=== PATIENT | female | born 1985 | race African-American/Black ===

== ENCOUNTER 2018-03-02 21:17 | Emergency (ER) | payer BC, OTHER ==
[~2018-03-02] VITALS: Ht 160 cm; Wt 97.5 kg
[2018-03-02 21:45] VITALS: BP 116/72
[2018-03-02] MEDS ORDERED: ZYRTEC10 M3 ORAL (21:47)
[2018-03-02] MEDS ORDERED: AUGMENTIN 875-1 EAC1 ORAL (21:47)
[2018-03-02 22:05] VITALS: BP 116/72
--- NOTE | 2018-03-02 22:12 | Emergency Room Report ---
History of Present Illness General Chief Complaint: Flu Like Symptoms Source: Patient Present Illness HPI Patient presents with child complaining of similar complaint She was having some sore throat however began having increased right-sided ear pain Denies any obvious fever Denies any neck pain or photophobia denies any chest pain or shortness of breath Patient also developed a mild cough Denies any abdominal pain Denies any recent travel denies any rash Allergies: Coded Allergies: No Known Allergies (Unverified , 03/02/18) Patient History Past Medical History: see triage record Pertinent Family History: none Last Menstrual Period: 3 days ago Reviewed Nursing Documentation: PMH: Agreed; PSxH: Agreed Nursing Documentation-PMH Past Medical History: No Stated History Review of Systems All Other Systems: negative except mentioned in HPI Physical Exam Vital Signs Date Time Temp Pulse Resp B/P (MAP) Pulse Ox O2 Delivery O2 Flow Rate FiO2 03/02/18 21:23 99.7 101 18 116/72 95 Room Air 99.7 Sp02 EP Interpretation: reviewed, normal General Appearance: well appearing, no apparent distress Head: normocephalic, atraumatic Eyes: bilateral eye PERRL, bilateral eye EOMI ENT: hearing grossly normal, normal pharynx, other - Right-sided tympanic membrane bulging associated erythema canal is clear, Neck: full range of motion, supple, other - Right-sided submental lymphadenopathy Respiratory: lungs clear, normal breath sounds Cardiovascular #1: regular rate, rhythm Gastrointestinal: non tender, soft Musculoskeletal: normal inspection Neurologic: alert, oriented x3, responsive Skin: no rash Lymphatic: no adenopathy Medical Decision Making Diagnostic Impression: Primary Impression: otitis media Additional Impression: pharyngitis ER Course Patient presents with complaints and clinical exam consistent with right-sided otitis media mild pharyngitis Patient does not appear septic or toxic and at this time is stable for initial conservative outpatient trial Last Vital Signs Date Time Temp Pulse Resp B/P (MAP) Pulse Ox O2 Delivery O2 Flow Rate FiO2 03/02/18 21:23 99.7 101 18 116/72 95 Room Air 99.7 Status: unchanged Disposition: HOME, SELF-CARE Condition: Stable Scripts Cetirizine Hcl (ZYRTEC) 10 Mg Capsule 10 MG ORAL DAILY, #15 CAP 0 Refills Prov: Luis Sanchez DO 03/02/18 Amoxicillin/Potassium Clav 875-125* (AUGMENTIN 875-125 TABLET*) 1 Each Tablet 1 TAB ORAL TWICE A DAY, #14 TAB Prov: Luis Sanchez DO 03/02/18 Patient Instructions: Otitis Media, Adult, [id number] Additional Instructions: Patient is provided with the discharge instructions notified to follow up with primary doctor in the next 2-3 days otherwise return to the er with any worsening symptoms. Please note that this report is being documented using DRAGON technology. This can lead to erroneous entry secondary to incorrect interpretation by the dictating instrument. Luis Sanchez DO Mar 02, 2018 22:12
== END 2018-03-02 22:30 | disposition home or self-care (01) ==
LOC: EMR 22:15
DX: H66.91 Otitis media, unspecified, right ear (principal); J02.9 Acute pharyngitis, unspecified
CPT/HCPCS: 99284

== ENCOUNTER 2018-03-04 20:22 | Emergency (ER) | payer BC, OTHER ==
[~2018-03-04] VITALS: Ht 160 cm; Wt 97.5 kg
[~2018-03-04 20:22] MED LIST: AUGMENTIN 875-1 EAC1 ORAL; ZYRTEC10 M3 ORAL
[2018-03-04] MEDS ORDERED: Ketorolac 30mg Inj IV ONE (20:45)
[2018-03-04] MEDS ORDERED: Isovue-300 100ml vial INJ PRN (20:45)
[2018-03-04] MEDS ORDERED: Dexamethasone 4mg/ml vial IVP ONE (20:45)
--- NOTE | 2018-03-04 20:50 | Emergency Room Report ---
History of Present Illness General Chief Complaint: Flu Like Symptoms Source: Patient Present Illness HPI 32-year-old female presents with worsening sore throat, right ear pain, subjective fevers, and reports she is on Augmentin, has completed 3 days worth so far but still having severe pain with swallowing, denies vomiting or diarrhea , any other complaints. Allergies: Coded Allergies: No Known Allergies (Unverified , 03/02/18) Patient History Past Medical History: see triage record Last Menstrual Period: February 26 Reviewed Nursing Documentation: PMH: Agreed; PSxH: Agreed Nursing Documentation-PMH Past Medical History: No Stated History Review of Systems All Other Systems: negative except mentioned in HPI Physical Exam Vital Signs Date Time Temp Pulse Resp B/P (MAP) Pulse Ox O2 Delivery O2 Flow Rate FiO2 03/04/18 20:23 99.8 106 18 117/64 98 Room Air 99.9 Sp02 EP Interpretation: reviewed, normal General Appearance: no apparent distress, alert, non-toxic Head: normocephalic Eyes: bilateral eye normal inspection, bilateral eye PERRL, bilateral eye EOMI ENT: normal ENT inspection, hearing grossly normal, normal pharynx - Right greater than left tonsillar prominence, but no purulence, no angioedema, moist mucus membranes Neck: normal inspection, full range of motion, supple, supple/symm/no masses, tender lateral - tender submental and L posterior cervical LN area Respiratory: chest non-tender, lungs clear, normal breath sounds, chest symmetrical, palpation of chest normal Cardiovascular #1: normal peripheral pulses, regular rate, rhythm Cardiovascular #2: 2+ radial (R), 2+ radial (L) Gastrointestinal: normal inspection, non tender, soft, no mass, no guarding, no rebound Rectal: deferred Genitourinary: normal inspection, no CVA tenderness Musculoskeletal: back normal, gait/station normal, normal range of motion, non- tender, no calf tenderness Neurologic: alert, responsive, german instructor III-XII nml as tested, motor strength/tone normal, sensory intact, speech normal Psychiatric: judgement/insight normal, memory normal, mood/affect normal, no suicidal/homicidal ideation Skin: normal color, no rash, warm/dry, normal turgor Lymphatic: adenopathy - L posterior cervical adenopathy Medical Decision Making Last Vital Signs Date Time Temp Pulse Resp B/P (MAP) Pulse Ox O2 Delivery O2 Flow Rate FiO2 03/04/18 20:31 106 18 Room Air 03/04/18 20:23 99.8 117/64 98 99.9 ANTONIO PETERSON M.D Mar 04, 2018 20:50
[2018-03-04] MEDS ORDERED: Zosyn 3.375gm inj ONE (20:56)
[2018-03-04 21:04] LABS: HEMOGLOBIN 7.6 G/DL (12.0-16.0); MEAN CORPUSCULAR VOLUME 58 FL (80-99); PLATELET COUNT 393 K/UL (150-450); RED BLOOD COUNT 4.84 M/UL (4.20-5.40); RED CELL DISTRIBUTION WIDTH 14.3 % (11.6-14.8); WHITE BLOOD COUNT 11.4 K/UL (4.8-10.8)
[2018-03-04 21:11] LABS: ANION GAP 7 mmol/L (5-15); BLOOD UREA NITROGEN 10 mg/dL (7-18); CALCIUM 9.4 MG/DL (8.5-10.1); CARBON DIOXIDE 31 MMOL/L (21-32); CHLORIDE 102 MMOL/L (98-107); CREATININE 0.7 MG/DL (0.55-1.30); POTASSIUM 3.6 MMOL/L (3.5-5.1); SODIUM 139 MMOL/L (136-145)
[2018-03-04 21:17] LABS: ALANINE AMINOTRANSFERASE 20 U/L (12-78); ALBUMIN 3.5 G/DL (3.4-5.0); ALBUMIN/GLOBULIN RATIO 0.8 (1.0-2.7); ALKALINE PHOSPHATASE 78 U/L (46-116); ASPARTATE AMINO TRANSFERASE 13 U/L (15-37); BILIRUBIN,TOTAL 0.8 MG/DL (0.2-1.0)
[2018-03-04] MEDS ORDERED: Piperacillin/Tazobactam 3.375 GM in D5W 55 ML IV SCH (22:00)
[2018-03-04 23:21] VITALS: BP 117/64
[2018-03-04 23:22] VITALS: BP 117/64
--- NOTE | 2018-03-05 09:40 | Diagnostic Imaging Report ---
Indication: Worsening sore throat, right ear pain, fevers, pain with swallowing Technique: IV administration nonionic contrast. Spiral acquisitions obtained through the neck. Multiplanar reconstructions were generated. Total dose length product 543.85 mGycm. CTDIvol(s) 18.96 mGy. Dose reduction achieved using automated exposure control Comparison: none Findings: There is minimal asymmetry to the tonsillar size, right slightly larger than the left, but the upper aerodigestive tract is otherwise unremarkable. No fluid collections or rim enhancement to suggest abscess. No significant prevertebral soft tissue swelling. The included maxillary sinuses are clear. The right jugulodigastric node is somewhat enlarged, measuring 2.5 x 1.9 cm. There are bilateral cervical nodes are prominent but not frankly enlarged. No cervical mass demonstrated. The salivary glands are unremarkable. A 2 mm nodule is seen in the right thyroid lobe. The upper mediastinum is unremarkable. The included lung apices are clear. The bones are unremarkable. The dentition is intact. The visualized intracranial structures are unremarkable. Impression: Mild asymmetric enlargement of the right tonsil, could be physiologic or could indicate some inflammation No evidence of abscess or prevertebral soft tissue inflammation Prominent right jugulodigastric node, probably reactive. This agrees with the preliminary interpretation provided overnight by [facility] service. The CT scanner at [facility] is accredited by the [employer] and the scans are performed using protocols designed to limit radiation exposure to as low as reasonably achievable to attain images of sufficient resolution adequate for diagnostic evaluation.
== END 2018-03-04 23:24 | disposition home or self-care (01) ==
LOC: EMR 20:35 → EEVIPCON 20:35 → CANBEDREQ 21:57 → EMR 23:24
DX: J02.9 Acute pharyngitis, unspecified (principal); H92.01 Otalgia, right ear
CPT/HCPCS: 36415; 70491; 80053; 84703; 85007; 85025; 87070; 96374; 96375; 99284; J1100; J1885; J2543; Q9967